=== PATIENT | male | born 1940 | race Caucasian/White ===

== ENCOUNTER 2016-11-06 01:28 | Emergency (ER) | payer MEDICARE ==
[~2016-11-06] VITALS: Ht 182.9 cm; Wt 86.3 kg
[2016-11-06 02:29] LABS: BASOPHILS % (AUTO) 1 % (0-2); EOSINOPHILS # (AUTO) 0.1 10^3uL; EOSINOPHILS % (AUTO) 2 % (0-4); LYMPHOCYTES # (AUTO) 0.5 X10^3; MEAN CORPUSCULAR HEMOGLOBIN 28.8 PG (26.0-34.0); MEAN CORPUSCULAR HGB CONC 33.9 g/dL (31.0-37.0); MEAN CORPUSCULAR VOLUME 85 FL (80-100); MONOCYTES # (AUTO) 0.8 X10^3; MONOCYTES % (AUTO) 11 % (3-11); NEUTROPHILS # (AUTO) 5.7 X10^3; NEUTROPHILS % (AUTO) 80 % (51-67); PLATELET COUNT 140 10^3uL (150-450); WHITE BLOOD COUNT 7.11 10^3uL (4.0-11.0)
[2016-11-06 02:37] LABS: ALBUMIN 3.5 g/dL (3.4-5.0); ANION GAP 11.1 MEQ/L (3-15); CALCULATED IONIZED CALCIUM 3.9 mg/dL (3.8-4.6); TOTAL PROTEIN 6.1 g/dL (6.4-8.5)
[2016-11-06] MEDS ORDERED: cefTRIAXone SODIUM 1,000 MG in SODIUM CHLORIDE 50 ML IV ONE (03:30)
[2016-11-06 04:23] VITALS: BP 147/76
== END 2016-11-06 04:15 | disposition home or self-care (01) ==
LOC: EDUNIT# 01:28 → ED 01:29
DX: J06.9 Acute upper respiratory infection, unspecified (principal)
CPT/HCPCS: 36415; 71010; 80053; 83605; 85025; 96365; 99285; J0696; 99283

== ENCOUNTER → 2016-11-06 | Outpatient (CLI) | payer MEDICARE | LOC: EMS 01:20 | PROVIDERS: ATTEND Emergency Medicine | DX: R05 Cough (principal); R53.1 Weakness ==

== ENCOUNTER 2016-11-08 17:32 | Emergency (ER) | payer MEDICARE ==
[~2016-11-08] VITALS: Ht 177.8 cm; Wt 86.3 kg
[2016-11-08 18:33] LABS: BASOPHILS % (AUTO) 1 % (0-2); EOSINOPHILS # (AUTO) 0.3 10^3uL; EOSINOPHILS % (AUTO) 5 % (0-4); LYMPHOCYTES # (AUTO) 0.7 X10^3; MEAN CORPUSCULAR HEMOGLOBIN 28.8 PG (26.0-34.0); MEAN CORPUSCULAR HGB CONC 34.1 g/dL (31.0-37.0); MEAN CORPUSCULAR VOLUME 85 FL (80-100); MEAN PLATELET VOLUME 8.8 FL (6.0-9.5); MONOCYTES # (AUTO) 0.7 X10^3; MONOCYTES % (AUTO) 12 % (3-11); NEUTROPHILS # (AUTO) 3.8 X10^3; NEUTROPHILS % (AUTO) 68 % (51-67); PLATELET COUNT 174 10^3uL (150-450); WHITE BLOOD COUNT 5.61 10^3uL (4.0-11.0)
[2016-11-08 18:35] LABS: BILIRUBIN,URINE Negative (Negative); COLOR,URINE Yellow; GLUCOSE, URINE (UA) Trace (Negative); LEUKOCYTE ESTERASE ,URINE Negative (Negative); UROBILINOGEN,URINE 0.2 mg/dL (0.2-1.0)
[2016-11-08 18:46] LABS: ALBUMIN 3.8 g/dL (3.4-5.0); TOTAL PROTEIN 6.6 g/dL (6.4-8.5)
[2016-11-08 18:54] LABS: CLARITY,URINE Slightly Cloudy; URINE CENTRIFUGED VOLUME 12 mL
[2016-11-08 18:56] LABS: AMORPHOUS SEDIMENT,UR 1+ /HPF; RBC,URINE >100 /HPF
[2016-11-08] MEDS ORDERED: morphine INJ 4 MG/ML 1 ML SYRINGE IV ONE (19:15)
--- NOTE | 2016-11-08 19:16 | NUR ---
RECIEVED ORDERS FROM DR. ALMANZAR. PT WILL HAVE CT ABDOMEN AND IV MORPHINE FOR PAIN.
[2016-11-08] MEDS ORDERED: ED- TRAMADOL 50 MG (ULTRAM) 6 TABLETS/BTL PO ONE (21:10)
[2016-11-08 22:03] VITALS: BP 155/76
[2016-11-08] MEDS ORDERED: morphine INJ 2 MG/ML 1 ML SYRINGE IV PRN (22:05)
== END 2016-11-08 22:13 | disposition home or self-care (01) ==
LOC: ED 17:33
DX: M79.81 Nontraumatic hematoma of soft tissue (principal); R10.11 Right upper quadrant pain
CPT/HCPCS: 36415; 74177; 80053; 81003; 81015; 83690; 85025; 85610; 86140; 96374; 96376; 99283; A9270; J2270; Q9967

== ENCOUNTER → 2016-11-08 | Outpatient (CLI) | payer MEDICARE | LOC: LAB 09:50 | PROVIDERS: ATTEND Family Medicine | DX: R31.0 Gross hematuria (principal); N39.0 Urinary tract infection, site not specified | CPT/HCPCS: 74176; 87088; 88112 ==

== ENCOUNTER 2016-12-02 04:45 | Emergency (ER) | payer MEDICARE ==
[~2016-12-02] VITALS: Ht 177.8 cm; Wt 89.3 kg
[2016-12-02 06:17] VITALS: BP 164/79
== END 2016-12-02 06:10 | disposition home or self-care (01) ==
LOC: ED 04:46
DX: I10 Essential (primary) hypertension (principal)
CPT/HCPCS: 99282